=== PATIENT | female | born 1965 | race Caucasian/White ===

== ENCOUNTER 2017-07-05 11:57 | Day surgery (SDC) | payer BC ==
[~2017-07-05 11:57] MED LIST: Sodium Citrate/Citric Acid* 15 ML UDC PO ONE
[2017-07-05] MEDS ORDERED: Sodium Citrate/Citric Acid* 15 ML UDC ONE (12:04)
[2017-07-05] MEDS ORDERED: Buffered Lidocaine 0.9% SYRIN* 5 ML/SYR SYRINGE ONE (12:05)
[2017-07-05] MEDS ORDERED: Bupivacaine 0.25% SDV* 30 ML ONE (13:07)
[2017-07-05] MEDS ORDERED: Naloxone* 0.4 MG/ML 1 ML VIAL IV PRN (13:24)
[2017-07-05] MEDS ORDERED: DiMENhydriNATE IV* 50 MG/ML VIAL IV PUSH PRN (13:24)
[2017-07-05] MEDS ORDERED: fentaNYL* 50 MCG/ML 2 ML VIAL (100 MCG VIAL) ONE ×3 (13:37→16:27)
[2017-07-05] MEDS ORDERED: Lidocaine 2% PF * 5 ML VIAL ONE (13:37)
[2017-07-05] MEDS ORDERED: Propofol* 10 MG/ML 20 ML BTL IV PUSH ONE (13:37)
[2017-07-05] MEDS ORDERED: Labetalol IV* 5 MG/ML 20 ML VIAL ONE (14:07)
[2017-07-05] MEDS ORDERED: Clindamycin 900 MG IVPREMIX(* 900 MG/50 ML SDV IV ONE (14:08)
[2017-07-05] MEDS ORDERED: Ketorolac INJ* 30 MG/ML 1 ML VIAL ONE (15:44)
[2017-07-05] MEDS: fentaNYL* 50 MCG/ML 2 ML VIAL (100 MCG VIAL) IV PRN ×3 (15:53→16:40)
[2017-07-05] MEDS ORDERED: HYDROcodone/ACETAMIN 5-325 MG* 1 TAB ONE (16:27)
[2017-07-05 17:43] VITALS: BP 124/84
--- NOTE | 2017-07-06 12:00 | OP ---
DATE OF OPERATION: 07/05/17 - [facility] DATE OF : 63 SURGEON: Mariusz Canela MD TUBE BUFFER: HIRO Verma. An laboratory assistant was needed for the entirety of the procedure to aide in positioning of the arm and retraction. ANESTHESIOLOGIST: Dr. Oleary. ANESTHESIA: General. PRE-OP DIAGNOSES: 1. Right elbow lateral epicondylitis. 2. Right radial tunnel syndrome. POST-OP DIAGNOSES: 1. Right elbow lateral epicondylitis. 2. Right radial tunnel syndrome. OPERATIVE PROCEDURE: 1. Debridement of right elbow lateral epicondylitis. 2. Right radial tunnel release. INDICATIONS: Britt has had progressive pain for quite some time. She has had nonoperative treatment by Dr. Obregon as well as myself. We had discussed her options. We talked about the surgery and the expected recovery as well as the risks and benefits including risks of finger drop and posterior interosseous nerve palsy. She had elected to proceed. ESTIMATED BLOOD LOSS: 2 mL. COMPLICATIONS: None. FINDINGS: As expected. DESCRIPTION OF PROCEDURE: Britt was seen in the preoperative holding area. The correct side, site, and procedure were identified. We came back to the operating room. Anesthesia was induced. The arm was prepped and draped in the usual fashion. A time-out was performed. I began by making a longitudinal incision over the lateral aspect of the elbow. Dissection was carried down through the subcutaneous tissue to the fascia. Total incision was about 8 to 10 cm. The full thickness flaps were raised off the fascia. The interval between the ECRL and the EDC was developed. Just beyond the ECRB origin, there was typical fishy appearing proximal tendon. This was all debrided sharply right off the bone of the lateral epicondyle taking care to preserve the lateral collateral ligament. The debridement was taken down clean, off the bone. I did excise a bit of the lateral radiocapitellar capsule as well. Once I had completed the debridement, I curetted everything out. Everything was looking good. So we irrigated everything out with the split and the tendon was repaired with 0 Vicryl suture, 3-0 Vicryl sutures in the subcutaneous tissue and the skin was closed with 4-0 Monocryl and Steri-Strips. I then flipped the arm over into supination. I made an anterior incision just on the medial border of the brachioradialis. Dissection was carried down through the subcutaneous tissue. There were couple of small traversing veins that were tied off. The fascia was split. I just came just medial to the brachioradialis and this took me right down to the radial nerve. Dissection was carried down, releasing all the overlying fascia, fascial band as well as vascular arcades. There was very prominent which was tied off with couple of 3-0 silk suture ties. This was actually quite constrictive. I went ahead and carried the dissection down towards the nerve branch and split into the superficial branch and the posterior interosseous nerve. The posterior interosseous nerve was dissected down through the supinator taking care to preserve its smaller branches as it began to branch. Once I had completed the entirety of the release proximally and distally, there was absolutely no compression on the nerve that I could see. I went ahead and irrigated out the wound. The subcutaneous tissue was reapproximated with 3-0 Vicryl. Skin was closed with 4-0 Monocryl and Steri-Strips. All the wounds were infiltrated with 0.25% plain Marcaine. The wounds were dressed with Xeroform, 4x4's sterile Webril, and a soft dressing was applied. She was then awoken up and taken to the recovery room in stable condition. [id number]/[facility] #: [id number] DESMOND
== END 2017-07-05 18:20 | disposition home or self-care (01) ==
LOC: OR 11:57
PROVIDERS: ATTEND Orthopaedic Surgery Hand Surgery
DX: M77.11 Lateral epicondylitis, right elbow (principal); G56.31 Lesion of radial nerve, right upper limb; E11.9 Type 2 diabetes mellitus without complications; Z79.84 Long term (current) use of oral hypoglycemic drugs; I10 Essential (primary) hypertension; E03.9 Hypothyroidism, unspecified; E78.5 Hyperlipidemia, unspecified; K21.9 Gastro-esophageal reflux disease without esophagitis; M79.7 Fibromyalgia
CPT/HCPCS: 88304; A9270-GY; J1885; J2704; J3010

== ENCOUNTER 2018-05-31 12:33 | Emergency (ER) | payer BC ==
[2018-05-31 13:09] VITALS: BP 147/93
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
== END 2018-05-31 14:55 | disposition home or self-care (01) ==
LOC: UCEAST 12:33
DX: S62.515A Nondisplaced fracture of proximal phalanx of left thumb, initial encounter for closed fracture (principal); V49.3XXA Car occupant (driver) (passenger) injured in unspecified nontraffic accident, initial encounter; Y92.008 Other place in unspecified non-institutional (private) residence as the place of occurrence of the external cause; Z88.0 Allergy status to penicillin; Z88.8 Allergy status to other drugs, medicaments and biological substances; Z88.5 Allergy status to narcotic agent; Z88.1 Allergy status to other antibiotic agents; E11.9 Type 2 diabetes mellitus without complications; Z79.84 Long term (current) use of oral hypoglycemic drugs; I10 Essential (primary) hypertension; K21.9 Gastro-esophageal reflux disease without esophagitis; F32.9 Major depressive disorder, single episode, unspecified
CPT/HCPCS: 99212; G0463

== ENCOUNTER 2019-03-23 12:57 | Emergency (ER) | payer BC ==
[2019-03-23 13:21] VITALS: BP 147/90
--- NOTE | 2019-03-23 13:56 | UC ---
Back Pain HPI - HPI Summary HPI Summary: lower back pain x 2 weeks pain is 8 out of 10 , sharp , no radiation of the pain worse with walking, movements nothing makes it better no fever, no chills, no urinary sx, also pain on her thighs , no calf pain no injury - History of Current Complaint Chief Complaint: UCBackPain Stated Complaint: BACK PAIN Time Seen by Provider: 03/23/19 13:37 Hx Obtained From: Patient Hx Last Menstrual Period: doesn't get anymore ?: No Onset/Duration: Gradual Onset, Lasting Weeks - 2, Still Present Timing: Constant Severity Initially: Moderate Severity Currently: Severe Pain Intensity: 7 Back Pain: Is Discrete @ - lower back Character: Sharp, Throbbing Aggravating Factor(s): Movement, Lifting, Bending, Walking, Cough Alleviating Factor(s): Nothing Associated Signs And Symptoms: Positive: Weakness. Negative: Swelling, Redness , Bruising, Fever, Numbness, Abdominal Pain, Flank Pain - Allergies/Home Medications Allergies/Adverse Reactions: Allergies Allergy/AdvReac Type Severity Reaction Status Date / Time acetaminophen [From Percocet] Allergy See Comment Verified 03/23/19 13:21 amoxicillin Allergy Rash Verified 03/23/19 13:21 azithromycin Allergy Hives Verified 03/23/19 13:21 besifloxacin [From Besivance] Allergy Hives Verified 03/23/19 13:21 cefuroxime Allergy Hives Verified 03/23/19 13:21 clavulanic acid Allergy Rash Verified 03/23/19 13:21 [From Augmentin] edetic acid Allergy Hives Verified 03/23/19 13:21 lactose Allergy GI Upset Verified 03/23/19 13:21 lidocaine Allergy Hives Verified 03/23/19 13:21 nickel Allergy See Comment Verified 03/23/19 13:21 oxycodone [From Percocet] Allergy See Comment Verified 03/23/19 13:21 Penicillins Allergy Hives Verified 03/23/19 13:21 vancomycin Allergy See Comment Verified 03/23/19 13:21 dust mite extract Allergy See Comment Uncoded 03/23/19 13:21 Home Medications: Home Medications sulfaSALAzine TAB* [Azulfidine TAB*] 500 mg PO BID 03/23/19 [History Confirmed 03/23/19] PMH/Surg Hx/FS Hx/Imm Hx - Additional Past Medical History Additional PMH: HLA-B27 (connective tissue disorder) Endocrine History: Diabetes, Thyroid Disease Cardiovascular History: Hypertension - Surgical History Surgical History: Yes Surgery Procedure, Year, and Place: 1984 - TONSILECTOMY. 1984 URETHRAL DILATION. 2000 OOPHRECTOMY - MESFIN. 2001 - Lt KNEE ARTHRO SCOPIC. 2002 - BREAST BIOPSY - BENIGN. 2004 Rt KNEE ARTHROSCOPIC. 2005 Lt KNEE REPLACEMENT. 2007 Rt KNEE REPLACEMENT. 2010 LT KNEE LATERAL RELEASE. 2010 PROPHYLATIC MESFIN MASTECTOMY & ABDOMINOPLASTY, MICROSURGICAL BREAST RECON ( AUTOTRANSPLANT). 2010 MESFIN RECON/ REVISION, THEN NIPPLE RECON/REVISION-THEN COSMETIC NIPLLE TATTOOS. 2013 CHOLECYSTECTOMY. 2014 Rt INDEX FINGER EXCISON- DISTAL PHYLANGIAL - MUCOCYST - Family History Known Family History: Positive: Hypertension - Social History Alcohol Use: None Substance Use Type: None Substance Use Comment - Amount & Last Used: Medical Marijuana sublingual Smoking Status (MU): Never Smoked Tobacco Review of Systems All Other Systems Reviewed And Are Negative: Yes Is Patient Immunocompromised?: No Physical Exam Triage Information Reviewed: Yes Appearance: Well-Nourished, Pain Distress Vital Signs: Initial Vital Signs Temp 98.4 F 03/23/19 13:17 Pulse 98 03/23/19 13:17 Resp 20 03/23/19 13:17 BP 147/90 03/23/19 13:17 Pulse Ox 97 03/23/19 13:17 Vital Signs Reviewed: Yes Eye Exam: Normal Eyes: Positive: Conjunctiva Clear ENT: Positive: Normal ENT inspection, Hearing grossly normal, Pharynx normal Neck: Positive: Supple, Nontender, No Lymphadenopathy Respiratory: Positive: Chest non-tender, Lungs clear, Normal breath sounds Cardiovascular: Positive: RRR, No Murmur, Pulses Normal Abdominal Exam: Normal Abdomen Description: Positive: Nontender, Soft Bowel Sounds: Positive: Present Musculoskeletal: Positive: Other: - lower back : no swelling , no erythema, no tenderness, decrease ROM on fleixon pian with flexion / extension and rotation Back Pain Course/Dx - Differential Dx/Diagnosis Provider Diagnosis: Back strain Discharge ED - Sign-Out/Discharge Documenting (check all that apply): Patient Departure All imaging exams completed and their final reports reviewed: No Studies - Discharge Plan Condition: Stable Disposition: HOME Prescriptions: HYDROcodone/ACETAMIN 5-325 MG* [[place] 5-325 TAB*] 1 tab PO Q6H PRN #15 tab MDD 4 PRN Reason: Pain - Severe predniSONE [Prednisone 20 MG TAB] 20 mg PO BID #10 tablet Patient Education Materials: Back Pain (ED) Referrals: Christy Aponte MD [Primary Care Provider] - 7 Days - Billing Disposition and Condition Condition: STABLE Disposition: Home
== END 2019-03-23 13:58 | disposition home or self-care (01) ==
LOC: UCCORT 12:57
DX: S39.012A Strain of muscle, fascia and tendon of lower back, initial encounter (principal); E11.9 Type 2 diabetes mellitus without complications; I10 Essential (primary) hypertension; Z88.8 Allergy status to other drugs, medicaments and biological substances; Z88.0 Allergy status to penicillin; Z88.1 Allergy status to other antibiotic agents; Z88.5 Allergy status to narcotic agent; Z91.09 Other allergy status, other than to drugs and biological substances; Z91.011 Allergy to milk products; Z88.7 Allergy status to serum and vaccine; Z96.653 Presence of artificial knee joint, bilateral; X58.XXXA Exposure to other specified factors, initial encounter; Y92.9 Unspecified place or not applicable
CPT/HCPCS: 99212; G0463